=== PATIENT | female | born 1975 | race Caucasian/White ===

== ENCOUNTER 2025-04-30 12:16 | Emergency (ER) | payer BC, SELFPAY ==
[2025-04-30 12:18] VITALS: BP 129/75
[2025-04-30 13:07] LABS: Hematocrit 42.1 % (37.0-47.0); Hemoglobin 14.2 g/dL (12.0-16.0); Mean Corp Hgb Conc. 33.7 g/dL (33.0-37.0); Mean Corpuscular Volume 89.8 fL (81.0-99.0); Nucleated Red Blood Cells % 0 %; Platelet Count 260 10^3/uL (130-400); Red Cell Dist. Width 12.5 % (11.5-14.5)
[2025-04-30 13:16] LABS: HCG, Serum Qualitative Screen Negative
[2025-04-30 13:19] LABS: ALT (SGPT) 11 U/L (0-35); AST (SGOT) 19 U/L (14-36); Albumin 5.1 g/dl (3.5-5.0); Alkaline Phosphatase 96 U/L (38-126); Blood Urea Nitrogen 17 mg/dl (7-17); Calcium 9.8 mg/dl (8.4-10.2); Carbon Dioxide 21 mmol/L (22-30); Chloride 106 mmol/L (98-107); Glucose 167 mg/dl (70-99); Lipase 78 U/L (23-300); Potassium 3.7 mmol/L (3.5-5.1); Sodium 138 mmol/L (135-145); Total Protein 8.0 g/dl (6.3-8.2); eGFR > 60.00
[2025-04-30 13:20] LABS: COVID-19 Antigen Negative (Negative)
[2025-04-30 13:30] LABS: Troponin I < 0.012 ng/ml
[2025-04-30 13:31] VITALS: BMI 28.6
[2025-04-30 14:00] VITALS: BP 108/65
--- NOTE | 2025-04-30 14:32 | ED.GENMED ---
History of Present Illness
General
Chief Complaint: Fainting/Passed Out
Source: patient and significant other
Exam Limitations: none
Time Seen by Provider: 04/30/25 14:18
Nursing documentation reviewed up to this point in time: agreed with
History of Present Illness
History of Present Illness:
49 yo female who experienced an episode of syncope around 11 AM while in her office at home. She reported getting up to obtain a glass of water and described a sensation of 'not feeling right' before attempting to return to her chair. She recalled
sitting in her computer chair and the next memory was waking up on the floor. Prior to losing consciousness, the patient felt like she was going to black out, with the environment becoming dizzy. It seems she hit the floor upon syncope but denied
any injuries. Following regaining consciousness, she was on the floor for a while, sweating significantly, and experienced numbness and tingling in her arms. After approximately 25 minutes, these sensations returned to chetan
Has had numb and tingling sensation persisted in her pinky finger for the past three days. The patient denied any prior similar episodes, chest pain, or dyspnea. No recent changes in vision or morning discomfort were reported. She noted no changes
or difficulties with urination or bowel movements.
Two weeks ago she had sore throat and H/A's for about a week and the week prior, her fiance was 'a lot sicker' with sore throat, headaches, fatigue, cough.' No recent travel
Past History
Past History
ED Past Medical History: HTN
ED Past Surgical History: Gynecological (Ectopic )
Review of Systems
Review of Systems
Allergies reviewed?: Yes
All Other Systems: ROS reviewed and negative except as documented in HPI and ROS
Constitutional: Denies fever or fatigue
EENT: Denies sore throat
Respiratory: Denies trouble breathing
Cardiac: Reports diaphoresis and syncope; Denies chest pain or palpitations
ABD/GI: Denies abdominal pain, nausea, vomiting, diarrhea or constipated
: Reports no symptoms
Musculoskeletal: Reports no symptoms
Skin: Reports no symptoms
Neurological: Reports numbness (Right pinky finger has been a little numb over the past 3 days unclear if she injured it); Denies dizzy, headache or weakness
Phy Exam
Physical Exam
Physical Exam:
GENERAL: No acute distress. A&Ox3.
CONSTITUTIONAL: Afebrile.
EYES: clear, conjunctivae normal
ENMT: moist mucus membranes, Pharynx nl
RESPIRATORY: Regular respirations, nonlabored, lungs clear.
CARDIOVASCULAR: Regular rate and rhythm, no murmurs, no rubs.
GI: Soft, nontender, normal BS
MUSCULOSKELETAL: Moves with ease. Well perfused.
SKIN: Warm, dry, pink
PSYCH: Normal mood and affect. Well kept, interactive and appropriate
NEUROLOGIC: Awake, alert and oriented. Cranial nerves II through XII intact. Strength equal throughout. No focal neurological deficits. [id number] intact. Patient out of bed and ambulating well
Course
Orders/Labs/Results
Orders:
Orders
04/30/25 12:22
Electrocardiogram (*1) Urgent
Reason for Study: Syncope
EKG- Treatment ONCE
Test Result ONCE
04/30/25 12:37
COVID-19 Antigen Urgent
Source: Nasal Swab
Complete Blood Count/With Diff Urgent
Comprehensive Metabolic Panel Urgent
HCG, Serum Qualitative Screen Urgent
Lipase Urgent
Magnesium Urgent
Comment: ADD ON
Troponin I Urgent
Influenza A+B Rapid Molecular Urgent
MICHELLE Source: Nasal Swab
Specimen Description:
04/30/25 13:37
Add On- LAB Urgent
Tests Added?: magnesium
Abnormal Lab Results
04/30/25
12:37
Carbon Dioxide 21 L mmol/L
(22-30)
Glucose 167 H mg/dl
(70-99)
Albumin 5.1 H g/dl
(3.5-5.0)
04/30/25 12:37
04/30/25 12:37
Vital Signs
Initial and Last Documented VS:
Initial Vital Signs
Temp Pulse Resp BP Pulse Ox
97.5 F 79 26 129/75 100
04/30/25 12:18 04/30/25 12:18 04/30/25 12:18 04/30/25 12:18 04/30/25 12:18
Last Documented Vital Signs
Temp Pulse Resp BP Pulse Ox
97.5 F 80 22 117/75 99
04/30/25 12:18 04/30/25 15:00 04/30/25 15:00 04/30/25 15:00 04/30/25 14:45
MDM/Problems Addressed
Differential Diagnosis Includes:
1. Vasovagal syncope
2. Orthostatic hypotension
3. Cardiac arrhythmia
4. Transient ischemic attack
5. Dehydration
6. Electrolyte imbalance
7. Anemia
8. Hypoglycemia
9. Peripheral neuropathy
10. Anxiety or stress-related episode
MDM/Problems Addressed:
49 yo female who experienced an episode of syncope around 11 AM while in her office at home. She reported getting up to obtain a glass of water and described a sensation of 'not feeling right' before attempting to return to her chair. She recalled
sitting in her computer chair and the next memory was waking up on the floor. Prior to losing consciousness, the patient felt like she was going to black out, with the environment becoming dizzy. It seems she hit the floor upon syncope but denied
any injuries. Following regaining consciousness, she was on the floor for a while, sweating significantly, and experienced numbness and tingling in her arms. Her fiance at bedside states she was pale and sweating profusely. sdAfter approximately 25
minutes, these sensations returned to normal
Has had numb and tingling sensation persisted in her pinky finger for the past three days. The patient denied any prior similar episodes, chest pain, or dyspnea. No recent changes in vision or morning discomfort were reported. She noted no changes
or difficulties with urination or bowel movements.
Two weeks ago she had sore throat and H/A's for about a week and the week prior, her fiance was 'a lot sicker' with sore throat, headaches, fatigue, cough.' No recent travel
Plan:
Blood tests to evaluate white blood cell count for infection, hemoglobin for anemia, electrolytes for possible dehydration, and kidney and liver function tests. A COVID test was performed due to recent respiratory symptoms. Observations for
potential vasovagal syncope or orthostatic hypotension was considered. Further management will depend on test outcomes.
Pt has been OOB to BR, asymptomatic, Drinking water
IV NSS 1L infused
CBC:Normal
CMP: Glucose 167 otherwise Normal
HCG neg
Covid neg
It is reassuring that pt was symptomatic feeling lightheaded prior to syncope, less likely cardiac related.
Referred to Cardiology for follow up
Feeling back to normal, ambulated out with normal gait at discharge
*Pulse Oximetry
SaO2: 99
Oxygen Mode of Delivery: Room air
Patient hypoxic: no
*EKG
EKG Intrepretation Date: 04/30/25
Interpretation: normal
Heart Rate: 76
Rate: normal
Rhythm: sinus
[place]: normal axis
Interval: normal interval
QRS Pattern: normal QRS
Ischemia: no ischemia
*Critical Care Note
Total Time (30-74mins, 75-104mins- exclusive of procedures): Not Applicable
ED Attending Note
-
Portions of this chart may have been created with voice recognition software.� Occasional wrong word or��sound alike� substitutions may have occurred due to the inherent limitations of voice recognition software.
Discharge Plan
Departure
Patient Disposition: Home (Routine Discharge)
Date of Disposition: 04/30/25
Time of Disposition: 14:58
Patient with high blood pressure during this ER visit?: No
Condition: Good
Discharge Problem:
Syncope with normal neurologic examination
Instructions: Syncope (Fainting) (DC)
Referrals:
Oswald Perez MD [Active, Cardiology] - Next open appointment
Tenthoff,Kiki Harvey MD [Family Provider, Family Practice] - As needed
Activity Restrictions/Additional Instructions:
As we discussed, nothing worrisome in your workup here today. Drink plenty of fluids.
Call and make a appointment with the branch library clerk for more thorough cardiac evaluation
Return here immediately if symptoms recur or anything worries you.
Interventions
Interventions:
*Risk Screen - Suicide Last Done: 04/30/25 13:32
*General Assessment Last Done: 04/30/25 13:32
*Neglect/Abuse Screening Last Done: 04/30/25 13:32
*ED- Fall Risk Assessment Last Done: 04/30/25 13:32
*ED COVID-19 Vaccine History Last Done: 04/30/25 13:32
*Nursing Disposition Last Done: 04/30/25 15:11
ED- Cardiac Assessment Last Done: 04/30/25 13:32
ED- Neurological Assessment Last Done: 04/30/25 13:32
Discharge Date and Time
Discharge Date/Time: 04/30/25 15:12
Print Language: ICELANDIC
[2025-04-30 14:36] VITALS: BP 118/65
[2025-04-30 14:50] LABS: Magnesium 2.0 mg/dl (1.6-2.3)
[2025-04-30 15:00] VITALS: BP 117/75
== END 2025-04-30 15:12 | disposition home or self-care (01) ==
LOC: EMR 12:16
PROVIDERS: Emergency Medicine; EMERGENCY PHYSICIAN Emergency Medicine; FAMILY PHYSICIAN Family Medicine
DX: R55 Syncope and collapse (principal); Z11.52 Encounter for screening for COVID-19; I10 Essential (primary) hypertension
CPT/HCPCS: 99284; 80053; 83690; 83735; 84484; 84703; 85025; 87502; 87811; 93005